=== PATIENT | male | born 1945 | race Caucasian/White ===

== ENCOUNTER → 2017-04-07 | Outpatient (CLI) | payer OTHER | LOC: CIMAGING 14:59 | PROVIDERS: ATTEND Internal Medicine | DX: M25.551 Pain in right hip (principal) | CPT/HCPCS: 73502-PO ==

== ENCOUNTER → 2018-11-30 | Outpatient (CLI) | payer OTHER | LOC: EMCIMAGING 09:36 | PROVIDERS: ATTEND Internal Medicine | DX: D18.09 Hemangioma of other sites (principal); R91.1 Solitary pulmonary nodule; D35.01 Benign neoplasm of right adrenal gland; D73.5 Infarction of spleen | CPT/HCPCS: 74183-PN ==